=== PATIENT | male | born 1995 | race Two or more races ===

== ENCOUNTER 2020-08-25 23:13 | Emergency (ER) | payer OTHER ==
[~2020-08-25] VITALS: Ht 188 cm; Wt 113.3 kg
--- NOTE | 2020-08-25 23:25 | PHYS DOC ---
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 Patient states that he has not had exercise/training for past 1 year. Recently about 4 days ago he had ran 4miles. He felt pulled muscle in his right groin area. He noted it got worse over last couple of days. He also noted pain is radiating toward the scrotal area. He complains of mild discomfort to his right testes. Patient denies any fever, chills, nausea or vomiting. Reports generalized vague discomfort constantly to his right groin area. Has not taken any analgesics or OTC medication reported. Patient went to urgent care and patient was told to have diagnostic studies like ultrasound or CT scan. Patient then contacted who recommend patient be evaluated in the ER for further evaluation. Patient denies any decreased appetite, or any bowel or bladder problems. No urinary symptoms. Review of Systems Review of Systems All other systems were reviewed and found to be within normal limits, except as documented in this note. Physical Exam Physical Exam Constitutional: Well developed, well nourished, no acute distress, non-toxic appearance. [] HENT: Normocephalic, atraumatic, bilateral external ears normal, oropharynx moist, no oral exudates, nose normal. [] Eyes: PERRLA, EOMI, conjunctiva normal, no discharge. [] Neck: Normal range of motion, no tenderness, supple, no stridor. [] Cardiovascular:Heart rate regular rhythm, no murmur [] Lungs & Thorax: Bilateral breath sounds clear to auscultation [] Abdomen: Bowel sounds normal, soft, minimal tenderness if any at all right lower quadrant tenderness, no masses, no pulsatile masses. Negative McBurney's point tenderness [] Skin: Warm, dry, no erythema, no rash. [] Back: No tenderness, no CVA tenderness. [] : Patient has no fascial defect right groin as well as left groin. Patient has no testicular enlargement or scrotal swelling. No discoloration. Patient does have a muscle pull/knot-like structure at the right inguinal area. It is tender to palpate. No bulging with straight leg raise testing. Extremities: No tenderness, no cyanosis, no clubbing, ROM intact, no edema. [] Neurologic: Alert and oriented X 3, normal motor function, normal sensory function, no focal deficits noted. [] Psychologic: Affect normal, judgement normal, mood normal. [] EKG EKG [] Radiology/Procedures Radiology/Procedures [] Heart Score C/O Chest Pain: N/A Risk Factors: Risk Factors: DM, Current or recent (<one month) smoker, HTN, HLP, family history of CAD, obesity. Risk Scores: Risk Factors: DM, Current or recent (<one month) smoker, HTN, HLP, family history of CAD, obesity. Course & Med Decision Making Course & Med Decision Making Patient presented with right inguinal/groin area pain. Initially patient suspected muscle pull versus inguinal hernia. However patient examination none revealing for musculoskeletal versus inguinal hernia. Patient underwent blood work which is essentially unremarkable. He had CT abdomen pelvis done which revealed acute appendicitis with stranding and up in the left. I discussed with Dr. Christianson who has accepted patient to [place] for further evaluation and treatment including surgical consultation. I will initiate patient cefoxitin 2 g IV x1 now in the ER. Keep patient n.p.o., maintenance fluids. Patient currently not nauseous and afebrile. Patient has no leukocytosis at present. Patient in agreement with surgical consultation and discussed the treatment plan. Laboratory Tests Test 08/25/20 23:30 08/26/20 00:25 Urine Collection Type Unknown Urine Color Yellow Urine Clarity Clear Urine pH 7.0 Urine Specific Hyndman 1.025 Urine Protein Neg Urine Glucose (UA) Neg mg/dL Urine Ketones (Stick) Neg mg/dL Urine Blood Neg Urine Nitrite Neg Urine Bilirubin Neg Urine Urobilinogen Dipstick 1.0 mg/dL Urine Leukocyte Esterase Neg Urine RBC 0 /HPF Urine WBC 5-10 /HPF Urine Squamous Epithelial Cells Occ /LPF Urine Bacteria Few /HPF White Blood Count 8.2 x10^3/uL Red Blood Count 4.70 x10^6/uL Hemoglobin 14.6 g/dL Hematocrit 41.5 % Mean Corpuscular Volume 88 fL Mean Corpuscular Hemoglobin 31 pg Mean Corpuscular Hemoglobin Concent 35 g/dL Red Cell Distribution Width 13.4 % Platelet Count 184 x10^3/uL Neutrophils (%) (Auto) 59 % Lymphocytes (%) (Auto) 32 % Monocytes (%) (Auto) 6 % Eosinophils (%) (Auto) 3 % Basophils (%) (Auto) 0 % Neutrophils # (Auto) 4.9 x10^3uL Lymphocytes # (Auto) 2.6 x10^3/uL Monocytes # (Auto) 0.5 x10^3/uL Eosinophils # (Auto) 0.2 x10^3/uL Basophils # (Auto) 0.0 x10^3/uL Sodium Level 143 mmol/L Potassium Level 3.9 mmol/L Chloride Level 107 mmol/L Carbon Dioxide Level 27 mmol/L Anion Gap 9 Blood Urea Nitrogen 22 mg/dL Creatinine 1.0 mg/dL Estimated GFR (Cockcroft-Gault) 91.8 Glucose Level 100 mg/dL Calcium Level 8.8 mg/dL Current Medications Medications (Trade) Dose Ordered Sig/Hemant Route PRN Reason Start Time Stop Time Status Last Admin Dose Admin Iohexol (Omnipaque 300 Mg/ml) 75 ml 1X ONCE IV 08/26/20 00:30 08/26/20 00:31 DC 08/26/20 00:27 Info (Do NOT chart on this entry -- for MONITORING) 1 each PRN DAILY PRN MC SEE COMMENTS 08/26/20 00:15 08/28/20 00:14 Cefoxitin Sodium 2 gm/Sodium Chloride 100 ml @ 200 mls/hr ONCE ONCE IV 08/26/20 03:00 08/26/20 03:29 DC 08/26/20 03:15 Cefoxitin Sodium (Mefoxin) 1 gm STK-MED ONCE IV 08/26/20 03:11 08/26/20 03:12 DC Cefoxitin Sodium (Mefoxin) 1 gm STK-MED ONCE IV 08/26/20 03:12 08/26/20 03:12 DC Sodium Chloride 100 ml @ As Directed STK-MED ONCE .ROUTE 08/26/20 03:13 08/26/20 03:[address] abdomen and pelvis with contrast: Reason for examination: Right groin pain. Knot in the right groin. Helical images were obtained through the abdomen pelvis with intravenous administration of 75 cc Omnipaque 300. Reconstruction was performed in sagittal and coronal planes. Exposure: One or more of the following individualized dose reduction techniques were utilized for this examination: 1. Automated exposure control 2. Adjustment of the mA and/or kV according to patient size 3. Use of iterative reconstruction technique. The lung bases are clear. The heart size is normal with no pericardial effusion. The liver appears to be mildly enlarged at 19 cm. The spleen also appears to be enlarged at 13.3 cm. Focal hepatic or splenic lesions are not evident. No abnormalities of seen at the adrenal glands or pancreas. Gallbladder is con tracted but no choleliths are identified. The abdominal aorta and inferior vena cava show no gross abnormalities. The colon shows no diverticulosis, diverticulitis or colitis. The appendix is mildly dilated and there appears to be a small 3 mm appendicolith present there is also some minimal stranding adjacent to the appendix and probably reflects early changes of acute appendicitis. The small intestinal tract shows no abnormal dilatation or wall thickening. There is no small bowel obstruction evident. The stomach contains a large amount of gastric content with no obstruction. No abnormality seen at the duodenum. The kidneys show no renal masses, renal calculi, hydronephrosis or evidence of obstructive uropathy. No abnormality seen at the bladder, prostate gland or seminal vesicles. No free fluid or free air is seen in the abdomen or pelvis. No acute bony abnormalities are seen. IMPRESSION: Mild hepatosplenomegaly. 3 mm appendicolith with mild dilatation of the appendix and minimal stranding adjacent to the appendix. The findings are consistent with early changes of appendicitis. Electronically signed by: Angelina Carter MD (08/26/2020 1:35 AM) [facility] Andres Disclaimer Mckenna Disclaimer This electronic medical record was generated, in whole or in part, using a voice recognition dictation system. Departure Departure: Impression: Primary Impression: Acute appendicitis Disposition: 02 [facility]ORT TERM [facility]OS[facility]ITAL Admitting Physician: Marylou Christianson Condition: GOOD Referrals: PCP,UNKNOWN (PCP) ROSALINDA SALAZAR MD Aug 25, 2020 23:25
[2020-08-26] MEDS ORDERED: CONTRAST GIVEN. MC PRN (00:15)
[2020-08-26] MEDS ORDERED: IOHEXOL 300 MG/ML 75 ML VIAL. IV ONE (00:30)
[2020-08-26 00:48] LABS: BASO % 0 % (0-3); EOS # 0.2 x10^3/uL (0.0-0.7); EOS % 3 % (0-3); HEMATOCRIT 41.5 % (39.0-53.0); HEMOGLOBIN 14.6 g/dL (13.0-17.5); LYMPH # 2.6 x10^3/uL (1.0-4.8); LYMPH % 32 % (24-48); MEAN CORPUSCULAR HEMOGLOBIN 31 pg (25-35); MEAN CORPUSCULAR HGB CONC 35 g/dL (31-37); MEAN CORPUSCULAR VOLUME 88 fL (79-100); MONO # 0.5 x10^3/uL (0.0-1.1); MONO % 6 % (0-9); NEUT # 4.9 x10^3uL (1.8-7.7); NEUT % 59 % (31-73); PLATELET COUNT 184 x10^3/uL (140-400); RED CELL DISTRIBUTION WIDTH 13.4 % (11.5-14.5); WHITE BLOOD COUNT 8.2 x10^3/uL (4.0-11.0)
[2020-08-26 00:55] LABS: BILIRUBIN,URINE NEG (NEG); CLARITY,URINE CLEAR; COLOR,URINE YELLOW; GLUCOSE,URINE NEG (NEG); NITRITE,URINE NEG (NEG); RBC,URINE 0 /HPF (0-2)
[2020-08-26 00:56] LABS: CALCIUM 8.8 mg/dL (8.5-10.1); GFR 91.8; POTASSIUM 3.9 mmol/L (3.5-5.1)
[2020-08-26 00:56] LABS: BACTERIA,URINE FEW /HPF (0-FEW); SQUAMOUS EPITHELIAL CELL,UR OCC /LPF
--- NOTE | 2020-08-26 01:37 | RAD ---
CT abdomen and pelvis with contrast: Reason for examination: Right groin pain. Knot in the right groin. Helical images were obtained through the abdomen pelvis with intravenous administration of 75 cc Omni paque 300. Reconstruction was performed in sagittal and coronal planes. Exposure: One or more of the following individualized dose reduction techniques were utilized for thi s examination: 1. Automated exposure control 2. Adjustment of the mA and/or kV according to patient size 3. Use of iterative reconstruction technique. The lung bases are clear. The heart size is normal with no pericardial effusion. The liver appears to be mildly enlarged at 19 cm. The spleen also appears to be enlarged at 13.3 cm. Focal hepatic or splenic lesions are not evident. No abnormalities of seen at the adrenal glands or p ancreas. Gallbladder is contracted but no choleliths are identified. The abdominal aorta and inferior vena cava show no gross abnormalities. The colon shows no diverticulosis, diverticulitis or colitis. The appendix is mildly dilated and there appears to be a small 3 mm appendicolith present there is a lso some minimal stranding adjacent to the appendix and probably reflects early changes of acute appe ndicitis. The small intestinal tract shows no abnormal dilatation or wall thickening. There is no sma ll bowel obstruction evident. The stomach contains a large amount of gastric content with no obstruct ion. No abnormality seen at the duodenum. The kidneys show no renal masses, renal calculi, hydronephr osis or evidence of obstructive uropathy. No abnormality seen at the bladder, prostate gland or seminal vesicles. No free fluid or free air is seen in the abdomen or pelvis. No acute bony abnormalities are seen. IMPRESSION: Mild hepatosplenomegaly. 3 mm appendicolith with mild dilatation of the appendix and minimal stranding adjacent to the appendi x. The findings are consistent with early changes of appendicitis. Electronically signed by: Angelina Carter MD (08/26/2020 1:35 AM) [facility]
[2020-08-26 02:51] VITALS: BP 127/62
[2020-08-26] MEDS ORDERED: IV NORMAL SALINE 100ML 100 ML ONE (03:13)
== END 2020-08-26 03:30 | disposition short-term general hospital (02) ==
LOC: ER 23:13
DX: K35.80 Unspecified acute appendicitis (principal)
CPT/HCPCS: 36415; 74177; 80048; 81001; 85025; 87086; 96374; 99285; J0694; Q9967